=== PATIENT | female | born 1930 | race Caucasian/White ===

== ENCOUNTER 2021-03-01 03:24 | Emergency (ER) | payer MEDICARE, BC ==
[2021-03-01] MEDS: Sodium Chloride 0.9% 10 ML Syringe FLUSH PRN ×3 (04:15→05:48)
[2021-03-01] MEDS ORDERED: Aspirin 81 MG Tab.Chew PO ONE (04:20)
--- NOTE | 2021-03-01 04:20 | EDM.PDOC ---
ED HPI GENERAL MEDICAL PROBLEM - General Chief Complaint: Neuro Symptoms/Deficits Stated Complaint: PATIENT THINKS SHE HAD A STROKE Time Seen by Provider: 03/01/21 04:14 Source of Information: Reports: Patient, Family History Limitations: Reports: No Limitations - History of Present Illness INITIAL COMMENTS - FREE TEXT/NARRATIVE: Patient awoke at 0200 with LLE numbness and difficulty walking to the bathroom. This is a recurrent problem due to sciatica. Her then noted her speech to be abnormal, she knew what she wanted to say but was unable to find the words. Patient believed she was having a stroke. She then began to have chest tightness. Denies prior h/o CVA. Last known well was 2129 yesterday. She currently denies numbness or speech difficulty, but does still complain of chest tightness. Also endorses generalized weakness x several months. PMHx includes HTN, CKD, CAD, CABG 2000, and bilateral carotid endarterectomy in 2002. - Related Data Allergies Allergy/AdvReac Type Severity Reaction Status Date / Time pseudoephedrine HCl Allergy Unknown UNKNOWN Verified 03/01/21 04:57 [From Sudafed] Sulfa (Sulfonamide Allergy Unknown UNKNOWN Verified 03/01/21 04:57 Antibiotics) Home Meds: Home Meds Aspirin [Halfprin] 81 mg PO DAILY 03/28/15 [History] Cholecalciferol (Vitamin D3) [Vitamin D] 1,000 unit PO DAILY 03/28/15 [History] Furosemide [Lasix] 20 mg PO ASDIRECTED PRN 03/28/15 [History] Hydrochlorothiazide 25 mg PO DAILY 03/28/15 [History] Levothyroxine 150 mcg PO ACBREAKFAST 03/28/15 [History] Metoprolol Succinate [Toprol XL 50mg] 50 mg PO DAILY 03/28/15 [History] Mv,Calcium,Min/Iron/Folic/Vitk [Essential Woman Tablet] 1 each PO DAILY 03/28/15 [History] Verapamil [Verelan] 240 mg PO DAILY 03/28/15 [History] atorvaSTATin [Lipitor] 80 mg PO BEDTIME 03/28/15 [History] lisinopriL [Prinivil] 10 mg PO DAILY 03/28/15 [History] Pantoprazole [ProTONIX] 40 mg PO DAILY 03/01/21 [History] Past Medical History Cardiovascular History: Reports: CAD, Hypertension Genitourinary History: Reports: Chronic Renal Insuffiency - Past Surgical History Cardiovascular Surgical History: Reports: Carotid Endarterectomy, Coronary Artery Bypass ED ROS GENERAL - Review of Systems Review Of Systems: Comprehensive ROS is negative, except as noted in HPI. ED EXAM, NEURO - Physical Exam Exam: See Below Exam Limited By: No Limitations General Appearance: Alert, WD/WN, No Apparent Distress Eye Exam: Bilateral Eye: EOMI, PERRL Throat/Mouth: Normal Voice, No Airway Compromise Head Exam: Atraumatic, Normocephalic Neck: Full Range of Motion Respiratory/Chest: No Respiratory Distress, Lungs Clear, Normal Breath Sounds Cardiovascular: Regular Rate, Rhythm, No Murmur GI/Abdominal: Soft, Non-Tender, No Distention Neurological: Alert, Normal Mood/Affect, CN II-XII Intact, No Motor/Sensory Defi cits, Oriented x 3, Other (NIHSS score=0, GCS=15) Extremities: Pedal Edema Psychiatric: Normal Affect, Normal Mood Skin Exam: Warm, Dry, Intact #1 Interpretation EKG Date: 03/01/21 Time: 04:00 Rhythm: NSR Rate (Beats/Min): 78 [place]: Normal P-Wave: Present QRS: Normal ST-T: Depressed (lateral leads) QT: Normal Comparison: NA - No Prior EKG Course - Vital Signs Last Recorded V/S: Last Vital Signs Temp 36.2 C 03/01/21 03:45 Pulse 63 03/01/21 05:47 Resp 14 03/01/21 05:30 BP 159/65 H 03/01/21 05:47 Pulse Ox 95 03/01/21 05:30 - Orders/Labs/Meds Orders: Active Orders 24 hr Category Date Time Status EKG Documentation Completion [RC] ASDIRECTED Care 03/01/21 03:52 Active CXR [Chest 1V Frontal] [CR] Stat Exams 03/01/21 04:21 Ordered Head wo Cont [CT] Stat Exams 03/01/21 03:50 Taken CULTURE URINE [RM] Stat Lab 03/01/21 04:45 Received Heparin Sodium/0.45% NaCl [Heparin 25,000 Units in 1/2 Med 03/01/21 05:45 A ctive NS 500 ML] 500 ml IV ASDIRECTED Nitroglycerin [Nitrostat] Med 03/01/21 04:22 Active 0.4 mg SL Q5M PRN Nitroglycerin/D5W [Nitroglycerin 25 MG/D5W 250 ML] Med 03/01/21 05:45 Active 25 mg in 250 ml IV TITRATE Sodium Chloride 0.9% [Saline Flush] Med 03/01/21 03:52 Active 10 ml FLUSH ASDIRECTED PRN Saline Lock Insert [OM.PC] Routine Oth 03/01/21 03:52 Ordered EKG 12 Lead [EK] Stat Ther 03/01/21 03:52 Ordered Medication Orders Heparin Sodium/Sodium Chloride (Heparin 25,000 Units In 1/2 Ns 500 Ml) 500 mls @ 20 mls/hr IV ASDIRECTED MICHEAL; Protocol Last Admin: 03/01/21 05:50 Dose: 20 mls/hr Documented by: EDILBERTO Cosigned by: WOODY Nitroglycerin/Dextrose (Nitroglycerin 25 Mg/D5w 250 Ml) 25 mg in 250 mls @ 6 mls/hr IV TITRATE MICHEAL; Protocol Nitroglycerin (Nitroglycerin 0.4 Mg Tab.Sl) 0.4 mg SL Q5M PRN PRN Reason: Chest Pain Last Admin: 03/01/21 04:36 Dose: 0.4 mg Documented by: EDILBERTO Sodium Chloride (Sodium Chloride 0.9% 10 Ml Syringe) 10 ml FLUSH ASDIRECTED PRN PRN Reason: Keep Vein Open Last Admin: 03/01/21 05:48 Dose: 10 ml Documented by: Admin: 03/01/21 05:20 Dose: 10 ml Documented by: Admin: 03/01/21 04:15 Dose: 10 ml Documented by: EDILBERTO Labs: Laboratory Tests 03/01/21 03/01/21 03/01/21 Range/Units 04:35 04:35 04:35 WBC 8.0 (3.0-10.3) x10-3/uL RBC 3.56 L (3.60-5.20) x10(6)uL Hgb 12.0 (11.4-15.5) g/dL Hct 36.1 (34.2-48.2) % MCV 101.6 H (76.7-100.5) fL MCH 33.8 (23.9-33.9) pg MCHC 33.3 (31.9-34.8) g/dL RDW 14.6 (12.3-16.5) % Plt Count 227 (151-488) x10(3)uL MPV 9.2 (7.1-12.4) fL Neut % (Auto) 74.5 (30.8-76.2) % Lymph % (Auto) 11.6 L (18.4-52.1) % [place] % (Auto) 9.7 (4.4-15.7) % Eos % (Auto) 3.6 (0.6-8.1) % Baso % (Auto) 0.6 (0.2-1.5) % Neut # (Auto) 6.0 (1.5-6.3) x10-3/uL Lymph # (Auto) 0.9 L (1.0-4.4) x10-3/uL [place] # (Auto) 0.8 (0.3-1.0) x10-3/uL Eos # (Auto) 0.3 (0.0-0.8) x10-3/uL Baso # (Auto) 0.0 (0.0-0.1) x10-3/uL PT 10.8 (9.0-11.1) sec INR 1.00 (1.00-1.24) APTT 23.2 L (24.4-33.2) SECONDS Sodium 138 (135-145) mmol/L Potassium 4.0 (3.5-5.3) mmol/L Chloride 101 (100-110) mmol/L Carbon Dioxide 27 (21-32) mmol/L BUN 32 H (7-18) mg/dL Creatinine 1.4 H (0.55-1.02) mg/dL Est Cr Clr Drug Dosing 19.95 mL/min Estimated GFR (MDRD) 35 L (>60) BUN/Creatinine Ratio 22.9 H (9-20) Glucose 127 H (80-116) mg/dL Calcium 9.0 (8.6-10.2) mg/dL Total Bilirubin 1.0 (0.1-1.3) mg/dL AST 23 (5-25) IU/L ALT 22 (12-36) U/L Alkaline Phosphatase 52 L (56-112) IU/L Troponin I (4.0-60.3) pg/mL Total Protein 7.3 (6.0-8.0) g/dL Albumin 3.5 (3.2-4.6) g/dL Globulin 3.8 g/dL Albumin/Globulin Ratio 0.9 Urine Color (YELLOW) Urine Appearance (CLEAR) Urine pH (5.0-6.5) Ur Specific [place] (1.010-1.025) Urine Protein (NEGATIVE) mg/dL Urine Glucose (UA) (NORMAL) mg/dL Urine Ketones (NEGATIVE) mg/dL Urine Occult Blood (NEGATIVE) Urine Nitrite (NEGATIVE) Urine Bilirubin (NEGATIVE) Urine Urobilinogen (NEGATIVE) mg/dL Ur Leukocyte Esterase (NEGATIVE) Urine RBC (0-5) Urine WBC (0-5) Ur Squamous Epith Cells (NS,R,O) Urine Bacteria (NS) 03/01/21 03/01/21 Range/Units 04:35 04:58 WBC (3.0-10.3) x10-3/uL RBC (3.60-5.20) x10(6)uL Hgb (11.4-15.5) g/dL Hct (34.2-48.2) % MCV (76.7-100.5) fL MCH (23.9-33.9) pg MCHC (31.9-34.8) g/dL RDW (12.3-16.5) % Plt Count (151-488) x10(3)uL MPV (7.1-12.4) fL Neut % (Auto) (30.8-76.2) % Lymph % (Auto) (18.4-52.1) % Republic % (Auto) (4.4-15.7) % Eos % (Auto) (0.6-8.1) % Baso % (Auto) (0.2-1.5) % Neut # (Auto) (1.5-6.3) x10-3/uL Lymph # (Auto) (1.0-4.4) x10-3/uL [place] # (Auto) (0.3-1.0) x10-3/uL Eos # (Auto) (0.0-0.8) x10-3/uL Baso # (Auto) (0.0-0.1) x10-3/uL PT (9.0-11.1) sec INR (1.00-1.24) APTT (24.4-33.2) SECONDS Sodium (135-145) mmol/L Potassium (3.5-5.3) mmol/L Chloride (100-110) mmol/L Carbon Dioxide (21-32) mmol/L BUN (7-18) mg/dL Creatinine (0.55-1.02) mg/dL Est Cr Clr Drug Dosing mL/min Estimated GFR (MDRD) (>60) BUN/Creatinine Ratio (9-20) Glucose (80-116) mg/dL Calcium (8.6-10.2) mg/dL Total Bilirubin (0.1-1.3) mg/dL AST (5-25) IU/L ALT (12-36) U/L Alkaline Phosphatase (56-112) IU/L Troponin I 25.5 (4.0-60.3) pg/mL Total Protein (6.0-8.0) g/dL Albumin (3.2-4.6) g/dL Globulin g/dL Albumin/Globulin Ratio Urine Color Yellow (YELLOW) Urine Appearance Slightly cloudy (CLEAR) Urine pH 7.0 H (5.0-6.5) Ur Specific [place] 1.010 (1.010-1.025) Urine Protein Negative (NEGATIVE) mg/dL Urine Glucose (UA) Normal (NORMAL) mg/dL Urine Ketones 15 H (NEGATIVE) mg/dL Urine Occult Blood Negative (NEGATIVE) Urine Nitrite Positive H (NEGATIVE) Urine Bilirubin Negative (NEGATIVE) Urine Urobilinogen Normal (NEGATIVE) mg/dL Ur Leukocyte Esterase Large H (NEGATIVE) Urine RBC 0-5 (0-5) Urine WBC 50-75 H (0-5) Ur Squamous Epith Cells Moderate H (NS,R,O) Urine Bacteria Many H (NS) Meds: Medications Generic Name Dose Route Start Last Admin Trade Name Freq PRN Reason Stop Dose Admin Heparin Sodium/Sodium Chloride 500 mls @ 20 mls/hr 03/01/21 05:45 03/01/21 05:50 Heparin 25,000 Units In 1/2 Ns 500 Ml IV 20 mls/hr ASDIRECTED MICHEAL Administration Protocol Nitroglycerin/Dextrose 25 mg in 250 mls @ 6 mls/hr 03/01/21 05:45 Nitroglycerin 25 Mg/D5w 250 Ml IV TITRATE MICHEAL Protocol 10 MCG/MIN Nitroglycerin 0.4 mg 03/01/21 04:22 03/01/21 04:36 Nitroglycerin 0.4 Mg Tab.Sl SL 0.4 mg Q5M PRN Administration Chest Pain Sodium Chloride 10 ml 03/01/21 03:52 03/01/21 05:48 Sodium Chloride 0.9% 10 Ml Syringe FLUSH 10 ml ASDIRECTED PRN Administration Keep Vein Open Discontinued Medications Generic Name Dose Route Start Last Admin Trade Name Freq PRN Reason Stop Dose Admin Aspirin 324 mg 03/01/21 04:20 03/01/21 04:35 Aspirin 81 Mg Tab.Chew PO 03/01/21 04:21 324 mg ONETIME ONE Administration Ceftriaxone Sodium 1 gm 03/01/21 05:09 03/01/21 05:17 Ceftriaxone 1 Gm Vial IVPUSH 03/01/21 05:10 1 gm .ONCE ONE Administration Heparin Sodium (Porcine) 4,000 units 03/01/21 05:35 03/01/21 05:48 Heparin Sodium 5,000 Units/Ml Vial IVPUSH 03/01/21 05:36 4,000 units ONETIME ONE Administration Metoprolol Tartrate 2.5 mg 03/01/21 05:38 03/01/21 05:47 Metoprolol Tartrate 5 Mg/5 Ml Sdv IVPUSH 03/01/21 05:39 2.5 mg ONETIME ONE Administration - Radiology Interpretation Free Text/Narrative:: CXR: No acute process. (ED provider interpretation) CT Head s/ contrast: IMPRESSION: 1. No evidence of acute infarction, intracranial hemorrhage, or mass-effect seen. Dictated by: Wallace Gunter MD @ 03/01/2021 04:12:31 - Re-Assessments/Exams Free Text/Narrative Re-Assessment/Exam: 03/01/21 04:42 Chest discomfort relieved with NTG SL x 1 03/01/21 04:58 Patient developed back pain and LLE numbness while walking to the bathroom in the ED, resolved with rest. 03/01/21 05:39 Dr. Leroy accepts patient for transfer, requests Heparin drip and Metoprolol. Will call back when a bed is available. Departure - Departure Time of Disposition: 06:11 Disposition: DC/Tfer to Acute Hospital 02 Condition: Fair Clinical Impression: ACS (acute coronary syndrome), TIA (transient ischemic attack) UTI (urinary tract infection) Qualifiers: Urinary tract infection type: acute cystitis Hematuria presence: without hematuria Qualified Code(s): N30.00 - Acute cystitis without hematuria - Discharge Information Forms: ED Department Discharge Sepsis Event Note (ED) - Focused Exam Vital Signs: Vital Signs Temp Pulse Pulse Resp BP BP Pulse Ox 03/01/21 05:47 63 159/65 H 03/01/21 05:30 14 161/69 H 95 03/01/21 05:15 12 162/65 H 95 03/01/21 05:00 15 164/68 H 95 03/01/21 04:45 15 145/66 H 94 L 03/01/21 04:36 175/73 H 03/01/21 04:30 17 168/73 H 96 03/01/21 04:15 15 174/70 H 95 03/01/21 04:00 16 178/73 H 95 03/01/21 03:45 36.2 C 16 158/66 H 94 L 03/01/21 03:25 78 16 165/66 H 94 L - My Orders Last 24 Hours: My Active Orders 03/01/21 03:50 Head wo Cont [CT] Stat 03/01/21 03:52 EKG Documentation Completion [RC] ASDIRECTED Sodium Chloride 0.9% [Saline Flush] 10 ml FLUSH ASDIRECTED PRN Saline Lock Insert [OM.PC] Routine EKG 12 Lead [EK] Stat 03/01/21 04:21 CXR [Chest 1V Frontal] [CR] Stat 03/01/21 04:22 Nitroglycerin [Nitrostat] 0.4 mg SL Q5M PRN 03/01/21 04:45 CULTURE URINE [RM] Stat 03/01/21 05:45 Heparin Sodium/0.45% NaCl [Heparin 25,000 Units in 1/2 NS 500 ML] 500 ml IV ASDIRECTED Nitroglycerin/D5W [Nitroglycerin 25 MG/D5W 250 ML] 25 mg in 250 ml IV TITRATE - Assessment/Plan Last 24 Hours: My Active Orders 03/01/21 03:50 Head wo Cont [CT] Stat 03/01/21 03:52 EKG Documentation Completion [RC] ASDIRECTED Sodium Chloride 0.9% [Saline Flush] 10 ml FLUSH ASDIRECTED PRN Saline Lock Insert [OM.PC] Routine EKG 12 Lead [EK] Stat 03/01/21 04:21 CXR [Chest 1V Frontal] [CR] Stat 03/01/21 04:22 Nitroglycerin [Nitrostat] 0.4 mg SL Q5M PRN 03/01/21 04:45 CULTURE URINE [RM] Stat 03/01/21 05:45 Heparin Sodium/0.45% NaCl [Heparin 25,000 Units in 1/2 NS 500 ML] 500 ml IV ASDIRECTED Nitroglycerin/D5W [Nitroglycerin 25 MG/D5W 250 ML] 25 mg in 250 ml IV TITRATE
[2021-03-01] MEDS ORDERED: Nitroglycerin 0.4 MG Tab.SL SL PRN (04:22)
[2021-03-01] MEDS ORDERED: cefTRIAXone 1 GM Vial IVPUSH ONE (05:09)
[2021-03-01] MEDS ORDERED: Heparin Sodium 5,000 Units/ML Vial IVPUSH ONE (05:35)
[2021-03-01] MEDS ORDERED: Metoprolol Tartrate 5 MG/5 ML SDV IVPUSH ONE (05:38)
[2021-03-01] MEDS ORDERED: Nitroglycerin/D5W 25 MG/250 ML BOTTLE IV SCH (05:45)
[2021-03-01] MEDS ORDERED: Heparin Sodium/0.45% NaCl 500 ML IV SCH (05:45)
[2021-03-01 05:48] VITALS: PULSE 63
[2021-03-01 07:16] VITALS: BP 170/64
--- NOTE | 2021-03-01 10:47 | CR ---
INDICATION: Chest pain. CHEST ONE VIEW: AP portable upright view of the chest was obtained 03/01/21 - no comparisons. Median sternotomy is noted with overlying EKG leads and heart near the upper limits of normal in size or mildly enlarged. The aorta is tortuous with calcification in the arch. A definite active infiltrate or effusion was not identified. Evidence of exogenous obesity is noted. Prominence of the superior mediastinum on the right is of questionable significance most likely on the basis of vascular structures. This could be further evaluated by CT as felt to be clinically necessary. IMPRESSION: No acute process. MTDD
== END 2021-03-01 09:34 ==
LOC: FB.ED 03:24
DX: G45.9 Transient cerebral ischemic attack, unspecified (principal); I24.9 Acute ischemic heart disease, unspecified; N30.00 Acute cystitis without hematuria; I12.9 Hypertensive chronic kidney disease with stage 1 through stage 4 chronic kidney disease, or unspecified chronic kidney disease; N18.9 Chronic kidney disease, unspecified; I25.810 Atherosclerosis of coronary artery bypass graft(s) without angina pectoris; Z79.82 Long term (current) use of aspirin; Z79.899 Other long term (current) drug therapy; Z88.2 Allergy status to sulfonamides; Z88.8 Allergy status to other drugs, medicaments and biological substances; Z20.822 Contact with and (suspected) exposure to COVID-19
CPT/HCPCS: 36415; 70450; 71045; 80053; 81001; 84484; 85025; 85610; 85730; 87086; 87088; 87186; 93005; 93010; 96374; 96375; 99285; A9270; J0696; J1644; J3490; U0002